=== PATIENT | male | born 1990 | race Asian ===

== ENCOUNTER 2021-07-03 15:06 | Emergency (ER) | payer OTHER ==
[~2021-07-03] VITALS: Ht 177.8 cm; Wt 93.0 kg
[2021-07-03 16:42] LABS: PLATELET COUNT 187 K/uL (142-355)
[2021-07-03 16:53] LABS: POTASSIUM 3.9 mmol/L (3.6-5.2)
[2021-07-03 20:30] VITALS: BP 156/86; TEMP 97.7
== END 2021-07-03 20:30 | disposition home or self-care (01) ==
LOC: ED 15:06
PROVIDERS: Emergency Medicine
DX: K52.89 Other specified noninfective gastroenteritis and colitis (principal); R11.2 Nausea with vomiting, unspecified; K21.9 Gastro-esophageal reflux disease without esophagitis; R10.13 Epigastric pain
CPT/HCPCS: 80053; 80307; 81000; 82150; 83690; 85027; 96360; 96372; 96374; 96375; 99284; J1200; J2405; J2765